=== PATIENT | male | born 1935 | race Caucasian/White ===

== ENCOUNTER 2017-04-12 08:32 | Emergency (ER) | payer MEDICARE, BC ==
[~2017-04-12] VITALS: Ht 182.9 cm; Wt 85.0 kg
[~2017-04-12 08:32] MED LIST: ADLT ASA LOW81 MG OR; ALPRAZOLAM0.5 MG PO; AMLODIPINE5 MG PO; AMOXICILLIN/PO500 MG OR; ANTIVERT PO; ATENOLOL100 MG PO; BLOOD GLUCOSE TEST S SC; BLOOD GLUCOSE TEST S VI; CADUET5 MG/40 MG OR; CIPROFLOXACN500 MG PO; CYANOCOBALAM1000 MCG IJ; CYANOCOBALAM1000 MCG IM; DIFLUCAN150 MG PO; DIPHEN/ATROP2.5 M1 PO; FIORICET PO; FLOVENT DISK100 MCG IN; FLUARIX QUADRIV1 INJ IM; FLUTICASONE50 MCG; LIPITOR40 M1 PO; LISINOPRIL2.5 MG PO; MELOXICAM7.5 MG PO; METFORMIN500 M1 OR; METFORMIN500 M1 PO; METFORMIN500 MG PO; MYRBETRIQ25 MG PO; NYSTATIN100000 M1 OR; OXYTROL; OXYTROL TD; PANTOPRAZOLE SO40 M1 PO; PLAVIX75 MG OR; PLAVIX75 MG PO; POLYTRIM OS; PROVENTIL IN; RELION ULTIMA T1 TES XX; SIMVASTATIN20 MG PO; TENORMIN PO; TEST STRIP; TEST STRIP XX; TIZANIDINE2 MG PO; TRAMADOL HCL50 MG PO; VESICARE5 MG PO; VITAMIN B-121000 MC1 SL; VITAMIN B-121000 MCG OR; ZOCOR20 MG PO; ZOFRAN ODT4 MG PO; ZOSTAVAX IM; [UNRECOGNIZED DRUG - REMARK] MT
[2017-04-12] MEDS ORDERED: TOLTERODINE TART2 MG PO (10:02)
[2017-04-12] MEDS ORDERED: PRAVASTATIN20 MG PO (10:04)
[2017-04-12] MEDS ORDERED: CYCLOBENZAPR5 MG PO (10:05)
[2017-04-12] MEDS ORDERED: GABAPENTIN100 MG PO (10:06)
[2017-04-12] MEDS ORDERED: TRULICITY0.75 MG/0. SC (10:07)
[2017-04-12] MEDS ORDERED: DELTASONE20 MG PO (10:16)
[2017-04-12] MEDS ORDERED: ULTRAM50 M1 PO (10:16)
[2017-04-12 10:51] VITALS: BP 135/84
== END 2017-04-12 10:51 | disposition home or self-care (01) ==
LOC: ED 08:32
DX: S39.012A Strain of muscle, fascia and tendon of lower back, initial encounter (principal); M54.41 Lumbago with sciatica, right side; A80.30 Acute paralytic poliomyelitis, unspecified

== ENCOUNTER 2017-04-21 08:13 | Emergency (ER) | payer MEDICARE, BC ==
[~2017-04-21] VITALS: Ht 182.9 cm; Wt 86.3 kg
[~2017-04-21 08:13] MED LIST changes: +CYCLOBENZAPR5 MG PO; +DELTASONE20 MG PO; +GABAPENTIN100 MG PO; +PRAVASTATIN20 MG PO; +TOLTERODINE TART2 MG PO; +TRULICITY0.75 MG/0. SC; +ULTRAM50 M1 PO
[2017-04-21] MEDS ORDERED: AVELOX400 MG PO (08:34)
[2017-04-21] MEDS ORDERED: TYLENOL # 31 TA1 PO (09:43)
[2017-04-21] MEDS ORDERED: PREDNISONE50 MG PO (09:43)
[2017-04-21 10:03] VITALS: BP 106/43
== END 2017-04-21 10:20 | disposition home or self-care (01) ==
LOC: ED 08:13
DX: M54.41 Lumbago with sciatica, right side (principal); J40 Bronchitis, not specified as acute or chronic

== ENCOUNTER 2017-05-02 09:26 | Emergency (ER) | payer MEDICARE, BC ==
[~2017-05-02] VITALS: Ht 182.9 cm; Wt 90.0 kg
[~2017-05-02 09:26] MED LIST changes: +AVELOX400 MG PO; +PREDNISONE50 MG PO; +TYLENOL # 31 TA1 PO
[2017-05-02] MEDS ORDERED: LORTAB 1010 MG PO (10:44)
[2017-05-02 11:40] VITALS: BP 129/73
[2017-05-07] MEDS ORDERED: TENORMIN PO (11:15)
[2017-05-07] MEDS ORDERED: JANUVIA50 MG PO (11:15)
[2017-05-07] MEDS ORDERED: LORTAB 1010 MG PO (12:25)
== END 2017-05-02 11:40 | disposition home or self-care (01) ==
LOC: ED 09:26
DX: S70.01XA Contusion of right hip, initial encounter (principal); I10 Essential (primary) hypertension; E11.9 Type 2 diabetes mellitus without complications; Z86.12 Personal history of poliomyelitis; W19.XXXA Unspecified fall, initial encounter

== ENCOUNTER 2017-05-08 07:37 | Day surgery (SDC) | payer MEDICARE, BC ==
[~2017-05-08] VITALS: Ht 182.9 cm; Wt 77.1 kg
[~2017-05-08 07:37] MED LIST changes: +JANUVIA50 MG PO; +LORTAB 1010 MG PO
[2017-05-08 10:09] VITALS: BP 119/62
[2017-05-14] MEDS ORDERED: VOLTAREN1%GEL TOP (13:08)
[2017-05-14] MEDS ORDERED: LORTAB 1010 MG PO (13:09)
== END 2017-05-08 10:43 | disposition home or self-care (01) ==
LOC: ORM 07:37
PROVIDERS: ATTEND Anesthesiology Pain Medicine
PROC: 3E0T33Z Introduction of Anti-inflammatory into Peripheral Nerves and Plexi, Percutaneous Approach (ICD-10-PCS; principal; 2017-05-08)
PROC: 3E0T3BZ Introduction of Anesthetic Agent into Peripheral Nerves and Plexi, Percutaneous Approach (ICD-10-PCS; 2017-05-08)
PROC: 3E0T33Z Introduction of Anti-inflammatory into Peripheral Nerves and Plexi, Percutaneous Approach (ICD-10-PCS; 2017-05-08)
PROC: 3E0T3BZ Introduction of Anesthetic Agent into Peripheral Nerves and Plexi, Percutaneous Approach (ICD-10-PCS; 2017-05-08)
PROC: 3E0T33Z Introduction of Anti-inflammatory into Peripheral Nerves and Plexi, Percutaneous Approach (ICD-10-PCS; 2017-05-08)
PROC: 3E0T3BZ Introduction of Anesthetic Agent into Peripheral Nerves and Plexi, Percutaneous Approach (ICD-10-PCS; 2017-05-08)
DX: M54.5 Low back pain (principal)

== ENCOUNTER 2017-05-22 06:35 | Day surgery (SDC) | payer MEDICARE, BC ==
[~2017-05-22 06:35] MED LIST changes: +VOLTAREN1%GEL TOP
[2017-05-22 08:19] VITALS: BP 110/60
[2017-05-22] MEDS ORDERED: TRAMADOL HCL50 MG PO (08:54)
== END 2017-05-22 09:10 | disposition home or self-care (01) ==
LOC: ORM 06:35
PROVIDERS: ATTEND Anesthesiology Pain Medicine
PROC: 3E0U33Z Introduction of Anti-inflammatory into Joints, Percutaneous Approach (ICD-10-PCS; principal; 2017-05-22)
PROC: 3E0U3BZ Introduction of Anesthetic Agent into Joints, Percutaneous Approach (ICD-10-PCS; 2017-05-22)
DX: M25.551 Pain in right hip (principal); M70.61 Trochanteric bursitis, right hip

== ENCOUNTER 2017-05-29 06:14 | Day surgery (SDC) | payer MEDICARE, BC ==
[~2017-05-29] VITALS: Ht 182.9 cm; Wt 72.6 kg
[2017-05-29 09:28] VITALS: BP 144/69
== END 2017-05-29 09:10 | disposition home or self-care (01) ==
LOC: ORM 06:14
PROVIDERS: ATTEND Anesthesiology Pain Medicine
PROC: 3E0U33Z Introduction of Anti-inflammatory into Joints, Percutaneous Approach (ICD-10-PCS; principal; 2017-05-29)
PROC: 3E0U3BZ Introduction of Anesthetic Agent into Joints, Percutaneous Approach (ICD-10-PCS; 2017-05-29)
DX: M25.551 Pain in right hip (principal); M70.71 Other bursitis of hip, right hip